=== PATIENT | female | born 1950 | race African-American/Black ===

== ENCOUNTER 2018-01-25 12:55 | Outpatient (CLI) | payer MEDICARE, OTHER | END 2018-01-25 12:56 | disposition home or self-care (01) | LOC: BICMAMMO 12:55 | PROVIDERS: ATTEND Family Medicine | DX: Z12.31 Encounter for screening mammogram for malignant neoplasm of breast (principal); Z80.3 Family history of malignant neoplasm of breast | CPT/HCPCS: 77063; 77067 ==

== ENCOUNTER 2019-05-04 08:43 | Outpatient (CLI) | payer MEDICARE, OTHER ==
--- NOTE | 2019-05-04 10:20 | RAD ---
LEFT SHOULDER RADIOGRAPHS THREE VIEWS: 05/04/2019 PROVIDED CLINICAL HISTORY: Pain. COMPARISON: 12/30/2017 FINDINGS: There is no evidence for fracture or other acute osseous abnormality. The glenohumeral relationship a ppears normal. Acromial enthesophyte formation is noted that may narrow the subacromial space. The vi sualized left lung field appears clear. IMPRESSION: Acromial enthesophyte formation which may narrow the subacromial space. Correlate with concerns for s ubacromial impingement. POS: [facility]
== END 2019-05-04 08:44 | disposition home or self-care (01) ==
LOC: SCSRAD 08:43
PROVIDERS: ATTEND Nurse Practitioner Family
DX: M25.512 Pain in left shoulder (principal)

== ENCOUNTER 2020-06-15 14:03 | Outpatient (CLI) | payer MEDICARE, MEDICAID ==
--- NOTE | 2020-06-15 15:11 | MMO ---
Bilateral MAMMO Bilat Screen [facility]. CLINICAL HISTORY: Patient is 70 years old and is seen for screening. The patient has the following family history of breast cancer: daughter, malignant (generic) and mother, malignant (generic). The patient has no personal history of cancer. VIEWS: The views performed were: bilateral craniocaudal with tomosynthesis and bilateral mediolateral oblique with tomosynthesis. FILMS COMPARED: The present examination has been compared to prior imaging studies performed at [facility] on 08/10/2015, 11/27/2016 and 01/25/2018, and at [facility] on 02/20/2012. This study has been interpreted with the assistance of computer-aided detection. MAMMOGRAM FINDINGS: The breasts are heterogeneously dense, which could obscure a lesion on mammography. There are stable benign appearing calcifications seen in both breasts. There are no suspicious masses, suspicious calcifications, or new areas of architectural distortion. IMPRESSION: THERE IS NO MAMMOGRAPHIC EVIDENCE OF MALIGNANCY. A ROUTINE FOLLOW-UP MAMMOGRAM IN 1 YEAR IS RECOMMENDED. THE RESULTS OF THIS EXAM WERE SENT TO THE PATIENT. ACR BI-RADS Category 2 - Benign finding MAMMOGRAPHY NOTE: 1. A negative mammogram report should not delay a biopsy if a dominant of clinically suspicious mass is present. 2. Approximately 10% to 15% of breast cancers are not detected by mammography. 3. Adenosis and dense breasts may obscure an underlying neoplasm. Reported by: ALEA ELKINS MD Electonically Signed: [id number]
== END 2020-06-15 14:04 | disposition home or self-care (01) ==
LOC: BICMAMMO 14:03
PROVIDERS: ATTEND Nurse Practitioner Family
DX: Z12.31 Encounter for screening mammogram for malignant neoplasm of breast (principal); Z80.3 Family history of malignant neoplasm of breast
CPT/HCPCS: 77063; 77067

== ENCOUNTER 2021-06-24 13:11 | Outpatient (CLI) | payer MEDICARE, MEDICAID | END 2021-06-24 13:12 | disposition home or self-care (01) | LOC: BICMAMMO 13:11 | PROVIDERS: ATTEND Nurse Practitioner Family | DX: Z12.31 Encounter for screening mammogram for malignant neoplasm of breast (principal); Z80.3 Family history of malignant neoplasm of breast | CPT/HCPCS: 77063; 77067 ==

== ENCOUNTER 2022-02-20 21:41 | Observation (INO) | payer MEDICARE, MEDICAID ==
[2022-02-21 00:19] VITALS: BMI 20.7
[2022-02-21] MEDS ORDERED: hydrALAZINE 20 MG/ML VIAL SLOW IVP PRN (00:45)
[2022-02-21] MEDS ORDERED: Nitroglycerin 0.4 MG TAB (25 Tab Bottle) SL PRN (02:31)
[2022-02-21] MEDS ORDERED: Guaifenesin DM 100-10/5 ML UDCUP PO PRN (02:37)
[2022-02-21] MEDS ORDERED: Ondansetron PF 4 MG/2 ML Vial IVP PRN (02:37)
[2022-02-21] MEDS ORDERED: Acetaminophen 325 MG TAB PO PRN (02:37)
[2022-02-21] MEDS ORDERED: Dextrose 50% Abboject 50 ML SYRINGE SLOW IVP PRN (02:39)
[2022-02-21] MEDS ORDERED: Dextrose 5% in Water 1,000 ML IV PRN (02:39)
[2022-02-21] MEDS ORDERED: HumaLOG 300 UNITS/3 ML VIAL SC PRN ×2 (02:39)
[2022-02-21 05:50] LABS: Anion Gap 16 mmol/L (10-20); BUN (Urea Nitrogen) 18 mg/dL (9.8-20.1); Calc. Creatinine Clearance 48 mL/min (70-130); Calcium 9.4 mg/dL (7.8-10.44); Carbon Dioxide 22 mmol/L (23-31); Cardiac Risk 2.6 (Less than 4.5); Chloride 107 mmol/L (98-107); Cholesterol 105 mg/dl (< 200 Desired); Estimated GFR 62; Glucose 254 mg/dL (83-110); HDL Cholesterol 41 mg/dL (>60 Neg Risk); LDL Cholesterol, Calculated 53 mg/dL; Potassium 3.2 mmol/L (3.5-5.1); Sodium 142 mmol/L (136-145); Triglycerides 56 mg/dL (Less than 150)
[2022-02-21 05:53] LABS: Troponin I Less than 0.010 ng/mL (< 0.028)
[2022-02-21] MEDS ORDERED: Carvedilol 3.125 MG TAB PO SCH (08:00)
[2022-02-21 08:35] LABS: Troponin I Less than 0.010 ng/mL (< 0.028)
[2022-02-21] MEDS ORDERED: Famotidine 20 MG TAB PO SCH (09:00)
[2022-02-21] MEDS ORDERED: Enoxaparin Sodium 40 MG/0.4 ML SYRINGE SC SCH (09:00)
[2022-02-21] MEDS ORDERED: Clopidogrel Bisulfate 75 MG TAB PO SCH (09:00)
[2022-02-21] MEDS ORDERED: Regadenoson 0.4 MG/5 ML SYRINGE ONE ×2 (10:33→15:54)
[2022-02-21 16:48] VITALS: BP 145/68; TEMP 97.9
[2022-02-21] MEDS ORDERED: Atorvastatin Calcium 40 MG TAB PO SCH (21:00)
== END 2022-02-21 18:01 | disposition home or self-care (01) ==
LOC: 2SW 23:34
PROVIDERS: ADMIT Family Medicine; ATTEND Family Medicine
DX: R07.2 Precordial pain (principal); I11.9 Hypertensive heart disease without heart failure; E11.9 Type 2 diabetes mellitus without complications; E78.5 Hyperlipidemia, unspecified; K21.9 Gastro-esophageal reflux disease without esophagitis; Z87.891 Personal history of nicotine dependence; Z79.02 Long term (current) use of antithrombotics/antiplatelets; Z79.84 Long term (current) use of oral hypoglycemic drugs; Z79.899 Other long term (current) drug therapy; Z88.0 Allergy status to penicillin; Z88.5 Allergy status to narcotic agent; Z88.8 Allergy status to other drugs, medicaments and biological substances; Z91.010 Allergy to peanuts; Z91.018 Allergy to other foods
CPT/HCPCS: 78452; 80048; 80061; 82962 ×2; 83036; 84484 ×2; 93017; 93306; 94760; A9500; 36415; 36416; G0378; J0360; J1650; J2785

== ENCOUNTER 2022-11-20 08:51 | Outpatient (CLI) | payer MEDICARE, MEDICAID | END 2022-11-20 08:52 | disposition home or self-care (01) | LOC: BICMAMMO 08:51 | PROVIDERS: ATTEND Nurse Practitioner Family | DX: Z12.31 Encounter for screening mammogram for malignant neoplasm of breast (principal) | CPT/HCPCS: 77063; 77067 ==

== ENCOUNTER 2023-04-23 09:57 | Outpatient (CLI) | payer OTHER | END 2023-04-23 09:58 | disposition home or self-care (01) | LOC: BICMAMMO 09:57 | PROVIDERS: ATTEND Nurse Practitioner Family | DX: N64.4 Mastodynia (principal); Z80.3 Family history of malignant neoplasm of breast | CPT/HCPCS: 77065; G0279 ==

== ENCOUNTER 2024-04-21 12:27 | Outpatient (CLI) | payer MEDICARE | END 2024-04-21 12:28 | disposition home or self-care (01) | LOC: BICMAMMO 12:27 | PROVIDERS: ATTEND Nurse Practitioner Family | DX: Z12.31 Encounter for screening mammogram for malignant neoplasm of breast (principal); Z80.3 Family history of malignant neoplasm of breast | CPT/HCPCS: 77063; 77067 ==